=== PATIENT | female | born 1935 | race Caucasian/White ===

== ENCOUNTER 2018-12-24 15:58 | Inpatient (IN) | payer MEDICARE, OTHER ==
[~2018-12-24] VITALS: Ht 170.2 cm; Wt 81.5 kg
[~2018-12-24 15:58] MED LIST: ASPIR 8181 MG PO; ASPIRIN325 PO; BRILINTA90 MG PO; COLACE100 MG PO; LISINOPRIL20 MG PO; LOVASTAT40 PO
[2018-12-24 17:00] VITALS: BP 107/61
[2018-12-24] MEDS ORDERED: ASPIRIN325 PO (18:49)
[2018-12-24] MEDS ORDERED: VITAMINC500 PO (18:50)
[2018-12-24] MEDS ORDERED: VITAMIN D1000 UNI1 PO (18:50)
[2018-12-24] MEDS ORDERED: FISH OIL 1,001000 M2 PO (18:51)
[2018-12-24] MEDS ORDERED: UNICOMPLEX M TA1 TA1 PO (18:51)
[2018-12-24] MEDS ORDERED: BIOTIN1000 MCG PO (18:52)
[2018-12-24 20:00] VITALS: BP 129/74
[2018-12-24 21:35] LABS: HEMATOCRIT 35.5 % (37.0-47.0); HEMOGLOBIN 12.2 gm/dL (12.0-15.0); MCH 32.1 pg (26.0-34.0); MCHC 34.3 g/dL (28.0-37.0); MCV 93.5 fL (80.0-100.0); MPV 8.2 fl. (7.2-11.1); RBC 3.8 mil/uL (4.20-5.00); WBC 4.6 thou/uL (4.0-11.0)
[2018-12-24 21:48] LABS: ALBUMIN 3.1 g/dL (3.4-5.0); CALCIUM 8.5 mg/dL (8.5-10.1); CREATININE 1.2 mg/dL (0.6-1.3); POTASSIUM 3.7 mmol/L (3.5-5.1); TOTAL BILIRUBIN 0.2 mg/dL (<0.1-1.0); TOTAL PROTEIN 6.2 g/dL (6.4-8.2)
[2018-12-25] VITALS: BP 100/57
[2018-12-25 04:33] VITALS: BP 101/57
[2018-12-25 07:37] VITALS: BP 116/66
[2018-12-25 09:54] LABS: CHOLESTEROL 138 mg/dL (<200); HDL CHOLESTEROL 59 mg/dL (>40); LDL CHOLESTEROL 62 mg/dL (<100); SERUM ASSESSMENT Clear; TC:HDL 2.3 Ratio (Not establshd); TRIGLYCERIDE 86 mg/dL (<150); VLDL 17 mg/dL (<40)
[2018-12-25 12:00] VITALS: BP 135/68
--- NOTE | 2018-12-25 14:05 | 2DMMODE ---
[place] [address] 2 D/M-MODE ECHOCARDIOGRAM Name: FAY NUNEZ Room: [address] IN .R.#: [id number] Admission: 12/24/18 Attend Phys: Venkata Reid Discharge: Date of : 35 Date of Service: 12/25/18 1405 Report #: [id number] THIS REPORT FOR: //name// APPROVED REPORT Study performed: 12/25/2018 10:20:31 EXAM: Comprehensive 2D, Doppler, and color-flow Echocardiogram Patient Location: In-Patient Room #: 201 Status: routine BSA: 1.92 HR: 64 bpm BP: 116/66 mmHg Rhythm: NSR Other Information Study Quality: Good Indications Atrial Fibrillation 2D Dimensions IVSd: 10.25 (7-11mm) LVOT Diam: 19.48 (18-24mm) LVDd: 45.24 mm PWd: 9.12 (7-11mm) Ascending Ao: 30.71 (22-36mm) LVDs: 30.62 (25-40mm) Aortic Root: 31.63 mm Volumes Left Atrial Volume (Systole) LA ESV Index: 39.10 mL/m2 Aortic Valve AoV Peak Jef.: 1.56 m/s AO Peak Gr.: 9.69 mmHg LVOT Max P.31 mmHg AO Mean Gr.: 5.50 mmHg LVOT Mean P.91 mmHg LVOT Max V: 1.26 m/s AO V2 VTI: 33.93 cm LVOT Mean V: 0.77 m/s KERVIN (VTI): 2.61 cm2 LVOT V1 VTI: 29.70 cm Mitral Valve E/A Ratio: 1.76 MV Decel. Time: 234.13 ms MV E Max Jef.: 1.23 m/[place] [address] 2 D/M-MODE ECHOCARDIOGRAM Name: FAY NUNEZ Room: [address] IN .R.#: [id number] Admission: 12/24/18 Attend Phys: Venkata Reid Discharge: Date of : 35 Date of Service: 12/25/18 1405 Report #: [id number] MV PHT: 67.90 ms MVA (PHT): 3.24 cm2 TDI E/Lateral E': 12.30 E/Medial E': 15.38 Medial E' Jef.: 0.08 m/s Lateral E' Jef.: 0.10 m/s Pulmonary Valve PV Peak Jef.: 0.80 m/s PV Peak Gr.: 2.56 mmHg Tricuspid Valve RAP Estimate: 5.00 mmHg TR Peak Gr.: 27.76 mmHg RVSP: 32.00 mmHg PA Pressure: 32.00 mmHg Left Ventricle The left ventricle is normal size. There is normal LV segmental wall motion. There is normal left ventricular wall thickness. Left ventricular systolic function is normal. LVEF is 60-65%. Grade III - reversible restrictive diastolic dysfunction. Right Ventricle The right ventricle is normal size. The right ventricular systolic function is normal. Atria Left atrium is mildly dilated. Right atrium is mildly dilated. There is an echogenic structure in the right atrium consistent with calcified eustachian valve. Aortic Valve Mild aortic valve sclerosis. No aortic regurgitation is present. There is no aortic valvular stenosis. Mitral Valve There is mitral annular calcification. Mild mitral regurgitation. No evidence of mitral valve stenosis. Tricuspid Valve The tricuspid valve is normal in structure. Trace tricuspid regurgitation. Mild pulmonary hypertension. Pulmonic Valve The pulmonary valve is normal in structure. [place] [address] 2 D/M-MODE ECHOCARDIOGRAM Name: FAY NUNEZ Room: [address]#: [id number] Admission: 12/24/18 Attend Phys: Venkata Reid Discharge: Date of : 35 Date of Service: 12/25/18 1405 Report #: [id number] Great Vessels The aortic root is normal in size. IVC is normal in size and collapses >50% with inspiration. Pericardium There is no pericardial effusion. <Conclusion> The left ventricle is normal size. There is normal left ventricular wall thickness. Left ventricular systolic function is normal. LVEF is 60-65%. Grade III - reversible restrictive diastolic dysfunction. Grade III - reversible restrictive diastolic dysfunction. Left atrium is mildly dilated. Right atrium is mildly dilated. There is an echogenic structure in the right atrium consistent with calcified eustachian valve. Mild aortic valve sclerosis. There is no aortic valvular stenosis. There is mitral annular calcification. Mild mitral regurgitation. Trace tricuspid regurgitation. Mild pulmonary hypertension. IVC is normal in size and collapses >50% with inspiration. <ELECTRONICALLY SIGNED> By: Rafael Monroy MD, FACC 12/25/18 1405 1405 1405 Rafael Monroy MD, FACC /INF
[2018-12-25 14:20] VITALS: BP 135/68
[2018-12-25] MEDS ORDERED: PROPAFENONE 15150 MG PO (14:25)
[2018-12-25] MEDS ORDERED: ELIQUIS5 MG PO (14:25)
--- NOTE | 2018-12-26 08:57 | EKG ---
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 : 1935 Requested By: Sandy Miller Order Number: [id number] Candy MD: Julien Acevedo Measurements Intervals [place] Rate: 60 P: 4 NM: 266 QRS: 46 QRSD: 93 T: 43 QT: 450 QTc: 450 Interpretive Statements Sinus rhythm Prolonged NM interval Borderline T abnormalities, anterior leads Compared to ECG 04/29/2017 07:37:21 no change Electronically Signed On 12-26-2018 8:57:03 CDT by Julien Acevedo [email or web address] <ELECTRONICALLY SIGNED> By: Julien Acevedo MD, [facility] 12/26/18 0857 1522 1522 Julien Acevedo MD, [facility] /EPI
== END 2018-12-25 15:30 | disposition home or self-care (01) | DRG 309 ==
LOC: M.2W 15:58
PROVIDERS: Registered Nurse; ADMIT Internal Medicine
DX: I48.0 Paroxysmal atrial fibrillation (principal); D68.69 Other thrombophilia; I25.10 Atherosclerotic heart disease of native coronary artery without angina pectoris; I10 Essential (primary) hypertension; E78.5 Hyperlipidemia, unspecified; Z95.5 Presence of coronary angioplasty implant and graft; Z86.73 Personal history of transient ischemic attack (TIA), and cerebral infarction without residual deficits; Z79.899 Other long term (current) drug therapy

== ENCOUNTER 2019-02-08 21:59 | Observation (INO) | payer MEDICARE, OTHER ==
[~2019-02-08] VITALS: Ht 170.2 cm; Wt 81.6 kg
--- NOTE | ~2019-02-08 | CON ---
[address] [address] CONSULTATION Name: FAY NUNEZ Room: [address] Aneudy Cueva#: [id number] Admission: 02/08/19 Attend Phys: Esme Alvarado MD Discharge: 02/09/19 Date of : 35 Report #: [id number] THIS REPORT FOR: //name// CC: Lucas Alvarado DATE OF SERVICE: 02/09/2019 INPATIENT CONSULTATION: PRIMARY COW TESTER: Dr. Devaughn Bills. CHIEF COMPLAINT: Palpitations, dizziness. HISTORY OF PRESENT ILLNESS: The patient is an 83-year-old woman with PAF who was in the office with palpitation symptoms and we elected to start her on Cardizem and after she started taking Cardizem, she felt dizzy, weak, and lightheaded. She went to the Emergency Room, was found to be in a sinus rhythm. She did have a first degree AV block, which is known along with PACs, but no AFib. Her blood pressure was low normal. Overnight, she has been monitored on the telemetry and this has been stable without evidence of atrial fibrillation or cardiac pauses or bradycardia. She has a history of known coronary artery disease and has been having some diaphoresis which was similar to her pre-PCI pain. However, her troponins and EKGs were negative and she is asymptomatic this morning. She denies orthopnea or PND. She has a history of normal LV systolic function. In the past, she has worn a 30-day monitor, which did not show evidence of sick sinus syndrome. PAST MEDICAL HISTORY: She has a history of PAF, hypertension, coronary artery disease, status post PCI with drug-eluting stent placed in the mid RCA in 2017. She is actually scheduled for an outpatient nuclear stress test because of her diaphoresis symptoms for next week. HOME MEDICATIONS: Include Eliquis 5 mg p.o. b.i.d., flecainide 50 mg 1 p.o. b.i.d., Mevacor 40 mg daily and Cardizem 120 mg has been discontinued. She has previously failed Rythmol because of side effects. She had previously been on lisinopril for high blood pressure, but this has been held. SOCIAL HISTORY: She is a nonsmoker [place] [address] CONSULTATION Name: FAY NUNEZ Room: [address] Aneudy Cueva#: [id number] Admission: 02/08/19 Attend Phys: Esme Alvarado MD Discharge: 02/09/19 Date of : 35 Report #: [id number] FAMILY HISTORY: Positive for mild hypertension. No history of sudden . REVIEW OF SYSTEMS: GENERAL: No fevers or chills. CARDIOVASCULAR: Positive palpitations, positive diaphoresis, positive near syncope. No syncope, no chest pain and orthopnea. PULMONARY: No wheezing or cough. ALLERGIES: No seasonal, medical, aspirin or contrast dye. PSYCHIATRIC: No depression or anxiety. MUSCULOSKELETAL: No arthritis or connective tissue disease. SKIN: No rashes. EYES: She does use glasses. EARS, NOSE, THROAT AND MOUTH: No decreased hearing. No bleeding from nose. GASTROINTESTINAL: No nausea or vomiting. PHYSICAL EXAMINATION: VITAL SIGNS: Blood pressure was 131/62, pulse is 60, respiratory rate 17. GENERAL: This is a pleasant elderly female. She is alert, oriented, no apparent distress. NECK: Supple, no jugular venous distention. CARDIOVASCULAR: Regular. I cannot hear a murmur. There is no rub or gallop. LUNGS: Clear to auscultation. ABDOMEN: Soft, nontender, nondistended. EXTREMITIES: No peripheral edema noted. No focal deficits. LABORATORY DATA: Electrocardiogram shows sinus rhythm, first degree AV block with PACs, mild sinus arrhythmia and no cardiac pauses. No AFib. Normal ST segments. CBC and BMP are unremarkable. Chest x-ray showed no acute cardiopulmonary process. IMPRESSION: 1. Weakness, near syncope. I suspect this was secondary to hypotension and this has resolved after discontinuing her drug. 2. Paroxysmal atrial fibrillation. She still has episodes of palpitation symptoms, which are likely her atrial fibrillation, which can last up to 45 minutes. She has been intolerant of other medications including Rythmol. She is maintaining sinus rhythm with flecainide, so I would like to continue with this drug, but I added p.r.n. Lopressor 12.5 mg for palpitation symptoms lasting more than 20-30 minutes long. She will continue with oral anticoagulation. 3. Diaphoresis, atypical chest pain. These are [place] [address] CONSULTATION Name: FAY NUNEZ Room: [address] JOSE Cueva#: [id number] Admission: 02/08/19 Attend Phys: Esme Alvarado MD Discharge: 02/09/19 Date of : 35 Report #: [id number] apparently she had prior to her PCI, so she is scheduled for an outpatient stress test. By: [id number] Alvarez MD, FACC /nt
[~2019-02-08 21:59] MED LIST changes: +BIOTIN1000 MCG PO; +ELIQUIS5 MG PO; +FISH OIL 1,001000 M2 PO; +PROPAFENONE 15150 MG PO; +UNICOMPLEX M TA1 TA1 PO; +VITAMIN D1000 UNI1 PO; +VITAMINC500 PO
[2019-02-08 22:03] VITALS: BP 162/89
[2019-02-08 22:23] LABS: ABSOLUTE EOSINOPHILS 0.3 thou/uL (0.0-0.7); ABSOLUTE LYMPHOCYTES 2.7 thou/uL (0.8-5.3); ABSOLUTE MONOCYTES 0.6 thou/uL (0.0-1.2); ABSOLUTE NEUTROPHILS 3.1 thou/uL (1.6-8.1); BASOPHILS 0.7 %; EOSINOPHILS 4.4 %; HEMATOCRIT 40.8 % (37.0-47.0); HEMOGLOBIN 13.9 gm/dL (12.0-15.0); MCH 32.1 pg (26.0-34.0); MCHC 34.1 g/dL (28.0-37.0); MCV 94.1 fL (80.0-100.0); MONOCYTES 8.7 %; NUCLEATED RBCS 0 /100WBC; PLATELET COUNT* 178 thou/uL (150-400); POLYS 46.2 %; RBC 4.33 mil/uL (4.20-5.00); RDW-CV 13.4 % (10.5-14.5); WBC 6.7 thou/uL (4.0-11.0)
[2019-02-08 22:33] LABS: ANION GAP 12 mmol/L (7-16); BUN 31 mg/dL (7-18); CHLORIDE 106 mmol/L (98-107); CO2 24 mmol/L (21-32); CREATININE 1.1 mg/dL (0.6-1.3); GLUCOSE 111 mg/dL (70-99); POTASSIUM 3.9 mmol/L (3.5-5.1); SODIUM 142 mmol/L (136-145)
[2019-02-08 22:36] LABS: APTT 27.2 Seconds (25.0-31.3); PROTIME 10.6 Seconds (9.20-11.50)
[2019-02-08 22:45] LABS: ALBUMIN 3.7 g/dL (3.4-5.0); ALKALINE PHOSPHATASE 59 U/L (46-116); CK-MB MASS 2.5 ng/mL (<0.5-3.6); LIPASE 195 U/L (73-393); MAGNESIUM 1.7 mg/dL (1.8-2.4); NT-PRO BRAIN NAT PEPTIDE 144 pg/mL (<300); SGOT 16 U/L (15-37); SGPT 18 U/L (30-65); TOTAL BILIRUBIN 0.2 mg/dL (<0.1-1.0); TOTAL PROTEIN 7.3 g/dL (6.4-8.2); TROPONIN-I LEVEL <0.06 ng/mL (<0.06)
[2019-02-08 23:45] VITALS: BP 138/80
[2019-02-09] MEDS ORDERED: CRESTOR40 MG PO (00:20)
[2019-02-09] MEDS ORDERED: FLECAINIDE ACET50 M1 PO ×2 (00:22→11:38)
[2019-02-09] MEDS ORDERED: CARDIZEM CD120 MG PO (00:23)
[2019-02-09 00:30] VITALS: BP 145/80
[2019-02-09 04:00] VITALS: BP 131/62
--- NOTE | 2019-02-09 05:31 | NUR ---
RECEIVED REPORT FROM ED RN. PT TRANSFERRED TO 204. PT A&OX4. VSS. PERSONNEL COUNSELOR IN PLACE. ADMISSION HISTORY & PHYSICAL ASSESSMENT COMPLETED AND CHARTED. ORIENTED TO ROOM AND CALL LIGHT. PT ON RA. PT TRACING SR ON TELE. PT BRIANNADLIB. MAGNESIUM 1.7. ELECTROLYTE PROTOCOL IN PLACE. DENIES ANY PAIN OR SOA. CALL LIGHT WITHIN REACH.
[2019-02-09] MEDS ORDERED: LOPRESSOR25 PO (11:48)
[2019-02-09 12:42] VITALS: BP 116/60
[2019-02-09 12:47] VITALS: BP 116/60
--- NOTE | 2019-02-09 13:45 | NUR ---
A&O X4, UP AD ROSS, VSS, CONTRACTING MANAGER TRACING SINUS RHYTHM WITH 1ST DEGREE BLOCK, RA, DENIES ANY CHEST PAIN/PALPITATIONS OR SOA. HOURLY ROUNDING COMPLETED. PT DISCHARGED HOME FROM UNIT AT APPROX 1340 VIA WHEELCHAIR WITH NURSING STAFF, , AND DAUGHTER AT SIDE. EDUCATED ON ALL DISCHARGE INSTRUCTIONS INCLUDING MEDICATIONS AND FOLLOW UP APPTS. PT TO HAVE OUT PATIENT STRESS TEST MONDAY. IV AND CONTRACTING MANAGER REMOVED.
--- NOTE | 2019-02-10 11:38 | EKG ---
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1935 Requested By: Milton Alvarado Order Number: [id number] MD: Enmanuel Alvarez Measurements Intervals [place] Rate: 79 P: 20 OK: 303 QRS: 11 QRSD: 106 T: 31 QT: 402 QTc: 461 Interpretive Statements Sinus rhythm Prolonged OK interval Minimal ST elevation, inferior leads Compared to ECG 12/25/2018 15:22:44 ST (T wave) deviation now present T-wave abnormality no longer present Electronically Signed On 02-10-2019 11:37:53 CDT by Enmanuel Alvarez [email or web address] <ELECTRONICALLY SIGNED> By: Enmanuel Alvarez MD, [facility] 02/10/19 1137 03 03 Enmanuel Alvarez MD, [facility] /EPI
== END 2019-02-09 13:40 | disposition home or self-care (01) ==
LOC: M.ERS 21:59 → M.TBA-ER 22:55 → M.2W 22:55
PROVIDERS: Family Medicine; ADMIT Internal Medicine
DX: R55 Syncope and collapse (principal); R53.1 Weakness; I25.10 Atherosclerotic heart disease of native coronary artery without angina pectoris; I48.0 Paroxysmal atrial fibrillation; I44.0 Atrioventricular block, first degree; T46.1X5A Adverse effect of calcium-channel blockers, initial encounter; E78.5 Hyperlipidemia, unspecified; E83.42 Hypomagnesemia; E78.00 Pure hypercholesterolemia, unspecified; R61 Generalized hyperhidrosis; Z86.73 Personal history of transient ischemic attack (TIA), and cerebral infarction without residual deficits; Z79.899 Other long term (current) drug therapy; Z95.5 Presence of coronary angioplasty implant and graft

== ENCOUNTER → 2019-02-11 | Outpatient (CLI) | payer MEDICARE, OTHER ==
[~2019-02-11] MED LIST changes: +CARDIZEM CD120 MG PO; +CRESTOR40 MG PO; +FLECAINIDE ACET50 M1 PO; +LOPRESSOR25 PO
--- NOTE | 2019-02-11 16:38 | CARDNUC ---
[place] [address] CARDIAC NUCLEAR IMAGING REPORT Name: FAY NUNEZ Room: [facility]#: [id number] Admission: 02/11/19 Attend Phys: Erin Blair, Discharge: Date of : 35 Date of Service: 02/11/19 1638 Report #: [id number] THIS REPORT FOR: //name// APPROVED REPORT Imaging Protocol: Rest Tc-99m/Stress Tc-99m 1 day Study performed: 02/11/2019 11:44:49 Indication: Chest pain, Diaphoretic, Racing heart. Patient Location: Out-Patient Stress Tech: Charla Harvey Stress Nurse: Alesha Olson RN NM Tech:ANNETTE Chi Ht: 5 ft 7 in Wt: 177 lbs BSA: 1.92 m2 BMI: 27.71 Medical History Medical History: Angina, Arrhythmia, Atrial Fibrillation, CAD s/p stent, CVD, HTN, Hyperlipidemia, Stroke/TIA. Medications: Rosuvastatin, Flecainide Acetate, Eliquis, Metoprolol PRN. Allergies: No known drug allergies Cardiac Risk Factors: Age, FHX of CAD, HTN, Hyperlipidemia, AFib. Previous Cardiac Procedures: PCI Pretest Chest Pain Characteristics: No chest pain Exercise History: Indeterminate Physical Disabilities: Legs, Back Meds Held (24 hrs): None Resting Data Rest SPECT myocardial perfusion imaging was performed in supine position 30 minutes following the intravenous injection of 11.2 mCi of Tc-99m Sestamibi. Time of rest injection: 1005 Date: 02/11/2019 The images were gated to evaluate regional wall motion and calculate left ventricular ejection fraction. Administration Route: IV Administration Site: Right Hand Pharmacologic Stress Pharmacologic stress test was performed by injecting Regadenoson 0.4 mg IV push over 10-15 seconds immediately followed by the intravenous injection of 31.9 mCi of Tc-99[place] [address] CARDIAC NUCLEAR IMAGING REPORT Name: FAY NUNEZ Room: [facility]#: [id number] Admission: 02/11/19 Attend Phys: Erin Blair, Discharge: Date of : 35 Date of Service: 02/11/19 1638 Report #: [id number] Time of stress injection: 1155 Date: 02/11/2019 Administration Route: IV Administration Site: Right Hand Gated Stress SPECT was performed 40 minutes after stress injection. The images were gated to evaluate regional wall motion and calculate left ventricular ejection fraction. Prone imaging was performed. Stress Test Details Stress Test: Pharmacologic stress testing performed using 0.4 mg of regadenoson per 5 mL given IV over 10 seconds. Reason for pharmacologic stress test: physical limitation, painful back and knees.. HR Max Heart Rate (APMHR): 137 bpm Resting HR: 67 bpm Target HR (85% APMHR): 116 bpm Max HR Achieved: 92 bpm % of APMHR: 67 Recovery HR: 83 bpm BP Resting BP: 144/91 mmHg Max BP: 127/77 mmHg Recovery BP: 178/87 mmHg ECG Resting ECG: Sinus Rhythm Stress ECG: Sinus Rhythm ST Change: None Arrhythmia: None Recovery ECG: Sinus Rhythm Recovery ST Change: None Recovery Arrhythmia: None Clinical Reason for Termination: Completed protocol Stress Symptoms: Headache, Lightheaded, Leg Ache/pain. Exercise duration: 0 min 0 sec Exercise capacity: 1.00 METs The patient tolerated Lexiscan infusion without significant cardiac symptoms. Nurse Comments 83 year old female presented with recent HX of CP and Diaphoresis. Patient tolerated sitting Lexiscan well. Recovery unremarkable with PO caffeine. Patient escorted by staff [place] [address] CARDIAC NUCLEAR IMAGING REPORT Name: FAY NUNEZ Room: [facility]#: [id number] Admission: 02/11/19 Attend Phys: Erin Blair, Discharge: Date of : 35 Date of Service: 02/11/19 1638 Report #: [id number] images. Patient stable with no complaints at this time. Stress ECG Conclusion The baseline 12-lead EKG show sinus rhythm without significant ST or T wave abnormality. EKGs obtained during and post Lexiscan infusion show sinus rhythm with no significant ST or T wave changes when compared baseline. There were no stress-induced arrhythmias. Study Quality Study: Good Artifact: No artifact Study Data At rest, the left ventricular ejection fraction was 80%.. Post stress, the left ventricular ejection was 75%.. TID = 0.99. Perfusion Normal left ventricular perfusion. Wall Motion Normal left ventricular wall motion. Nuclear Conclusion ECG Findings: negative for ischemia Clinical Findings: negative for ischemia Nuclear Findings: negative for ischemia Exercise Capacity: not assessed Left Ventricular Function: normal Risk Study: low Myocardial perfusion images show no defect to suggest infarct or ischemia. Left ventricular systolic function appears normal on gated studies. This is a low risk study. <Conclusion> The baseline 12-lead EKG show sinus rhythm without significant ST or T wave abnormality. EKGs obtained during and post Lexiscan infusion show sinus rhythm with no significant ST or T wave changes when compared baseline. There were no stress-induced arrhythmias. <ELECTRONICALLY SIGNED> By: Rafael Monroy MD, FACC 02/11/19 1638 1638 1638 Rafael Monroy MD, FACC /INF
== END ==
LOC: M.NUC 01-31 14:53 → M.CRD 02-04 15:00 → M.NUC 02-04 16:00
DX: I25.119 Atherosclerotic heart disease of native coronary artery with unspecified angina pectoris (principal); I48.91 Unspecified atrial fibrillation; E78.5 Hyperlipidemia, unspecified; I10 Essential (primary) hypertension

== ENCOUNTER 2020-04-29 14:55 | Observation (INO) | payer MEDICARE, OTHER ==
[~2020-04-29] VITALS: Ht 167.6 cm; Wt 74.8 kg
[2020-04-29] VITALS (10 sets, daily range): BP systolic 135–202; BP diastolic 76–91
--- NOTE | ~2020-04-29 | H ---
[place] [address] HISTORY AND PHYSICAL Name: FAY NUNEZ Room: [facility] Negrita.#: [id number] Admission: 04/29/20 Attend Phys: Devaughn Bills MD, Discharge: Date of : 35 Report #: [id number] THIS REPORT FOR: //name// cc: Lucas Echols MD, James A. MD ~ THIS REPORT FOR: //name// CC: Lucas Bills DATE OF SERVICE: 04/29/2020 HISTORY OF PRESENT ILLNESS: The patient is a very pleasant 84-year-old female with a history of coronary artery disease, 3 years status post stenting of the mid right coronary artery. She also has a history of hypertension, hypercholesterolemia, and paroxysmal atrial fibrillation. For the preceding 2 months, she has noted episodes of unexplained sweatiness with left arm aching pain, similar to her prior ischemic syndrome 3 years ago that triggered PCI to the right coronary artery. She has a history of paroxysmal atrial fibrillation, she denies recent symptoms suggesting recurrent dysrhythmia. The patient is compliant with anticoagulant therapy with Eliquis and also takes ascorbic acid, biotin, cholecalciferol, fish oil, flecainide 50 mg b.i.d., Lopressor 25 mg daily, Crestor 20 mg daily, vitamin B12, and Thera-M tablets. PAST MEDICAL HISTORY: Remarkable for hypertension, paroxysmal atrial fibrillation, hypercholesterolemia and mild weight excess. SOCIAL HISTORY: She is . She is a nonsmoker. FAMILY HISTORY: Negative for premature coronary disease. REVIEW OF SYSTEMS: Remarkable for the following positives. GENERAL: She notes mild weight excess. ENDOCRINE: There is a history of treated hyperlipidemia. MUSCULOSKELETAL: She notes mild chronic arthritic complaints. CARDIAC: There is a history of coronary artery disease, status post PCI in 2017 with a history of paroxysmal atrial fibrillation, treated with flecainide and Eliquis. Remainder is unremarkable. PHYSICAL EXAMINATION: GENERAL: Demonstrates a mildly overweight elderly female. VITAL SIGNS: Blood pressure is 140/70, pulse rate is 70, [place] [address] HISTORY AND PHYSICAL Name: FAY NUNEZ Room: [facility]#: [id number] Admission: 04/29/20 Attend Phys: Devaughn Bills MD, Discharge: Date of : 35 Report #: [id number] 18 per minute. NECK: Jugular venous pressure is normal. Carotids are 1-2+. CHEST: Clear. CARDIAC: Reveals normal first and second heart sounds with soft early systolic murmur without rubs or gallops. ABDOMEN: Modestly obese and nontender, without masses or organomegaly. EXTREMITIES: Without edema, clubbing or cyanosis with intact femoral, pedal and radial pulses. There are no deforming arthritic changes. No petechiae or ecchymosis are noted. LABORATORY DATA: Pending. IMPRESSION: 1. Coronary artery disease. 2. Recent pattern of diaphoresis and left arm aching pain compatible with angina following an unstable course. 3. Status post PCI of the right coronary artery 3 years ago. 4. Hypercholesterolemia. 5. Hypertension. 6. Paroxysmal atrial fibrillation. 7. Mild weight excess. RECOMMENDATIONS: Given the recent clinical scenario and known coronary artery disease with risk factor profile as outlined above, I would recommend proceeding with cardiac catheterization to define current coronary anatomy and prospects for subsequent therapeutic modification. This has been discussed with the patient, we will plan to proceed with cardiac catheterization today on 04/29/2020. Critical care time is 35 minutes from 1450 to 1525 on 04/29/2020. By: 1518 1553Devaughn Bills MD, FACC /nt
--- NOTE | ~2020-04-29 | D ---
[address] [address] DISCHARGE SUMMARY Name: FAY NUNEZ Room: [address] Aneudy M.R.#: [id number] Admission: 04/29/20 Attend Phys: Devaughn Bills MD, Discharge: Date of : 35 Report #: [id number] THIS REPORT FOR: //name// cc: Lucas Echols MD, James A. MD ~ THIS REPORT FOR: //name// CC: Lucas Bills DATE OF SERVICE: 04/30/2020 The patient discharged from room #226 on 04/30/2020. FINAL DISCHARGE DIAGNOSES: 1. Angina pectoris. 2. Coronary artery disease. 3. Status post prior percutaneous coronary intervention. 4. Hyperlipidemia. 5. Hypertension. 6. Paroxysmal atrial fibrillation. PROCEDURES: On 04/29/2020 -- left heart catheterization, selective coronary arteriography. HISTORY AND HOSPITAL COURSE: The patient is a very pleasant and active 84-year-old female who is now 3 years status post PCI to the mid right coronary artery. She describes symptoms which were similar to her prior angina with unexplained diaphoresis and mild left arm pain occurring periodically. In the context of the known coronary artery disease as well as hypertension and hyperlipidemia, I elected to proceed with cardiac catheterization on 04/29/2020. That revealed a widely patent mid right coronary stent with 40% proximal, 50% distal right coronary narrowing. There was 30% proximal, mid and distal LAD narrowings with 30% first diagonal narrowing. The left main and circumflex were without significant stenosis. Systemic pressure was modestly elevated during the case. She has a history of atrial fibrillation, but did not demonstrate that during the hospitalization. There was good hemostasis at the right femoral site of catheterization, and she was discharged to home in stable condition on 04/30/2020 on the following medications: Eliquis 5 mg b.i.d. to be resumed on 05/01/2020, ascorbic acid or vitamin C 1000 mg daily, biotin 1000 mcg daily, vitamin D or cholecalciferol 1000 units daily, fish oil 1000 mg daily, flecainide 50 mg b.i.d., [place] [address] DISCHARGE SUMMARY Name: FAY NUNEZ Room: [address] M.R.#: [id number] Admission: 04/29/20 Attend Phys: Devaughn Bills MD, Discharge: Date of : 35 Report #: [id number] 1 tablet daily, rosuvastatin 40 mg at bedtime and metoprolol tartrate 25 mg b.i.d. as well as p.r.n. sublingual nitroglycerin. The patient is scheduled to return to see me in the office on 05/27/2020 at our [facility] Office at 1100 hours. Therefore, the patient is discharged to home in stable condition on the aforementioned medications with followup as described above. By: [id number] Bills MD, [facility] /nt
[~2020-04-29 14:55] MED LIST changes: -VITAMIN D1000 UNI1 PO; +Vitamin D 1000 UNIT PO
[2020-04-29 15:25] LABS: HEMATOCRIT 42.6 % (37.0-47.0); HEMOGLOBIN 14.6 gm/dL (12.0-15.0); MCH 32.4 pg (26.0-34.0); MCHC 34.4 g/dL (28.0-37.0); MCV 94.4 fL (80.0-100.0); MPV 8.2 fl. (7.2-11.1); RBC 4.51 mil/uL (4.20-5.00); RDW-CV 12.8 % (10.5-14.5); WBC 6.5 thou/uL (4.0-11.0)
[2020-04-29 15:35] LABS: ANION GAP 9 mmol/L (7-16); BUN 17 mg/dL (7-18); CALCIUM 9.4 mg/dL (8.5-10.1); CHLORIDE 104 mmol/L (98-107); CO2 26 mmol/L (21-32); CREATININE 0.9 mg/dL (0.6-1.3); GLUCOSE 93 mg/dL (70-99); POTASSIUM 4.1 mmol/L (3.5-5.1); SODIUM 139 mmol/L (136-145)
[2020-04-29 15:36] LABS: APTT 26.6 Seconds (25.0-31.3); INR 1.1; PROTIME 11.2 Seconds (9.20-11.50)
[2020-04-29 15:39] LABS: ALBUMIN 4.1 g/dL (3.4-5.0); ALKALINE PHOSPHATASE 57 U/L (46-116); CHOLESTEROL 137 mg/dL (<200); HDL CHOLESTEROL 82 mg/dL (>40); LDL CHOLESTEROL 46 mg/dL (<100); SERUM ASSESSMENT Clear; SGOT 14 U/L (15-37); SGPT 17 U/L (30-65); TC:HDL 1.7 Ratio (Not establshd); TOTAL BILIRUBIN 0.5 mg/dL (<0.1-1.0); TOTAL PROTEIN 7.5 g/dL (6.4-8.2); TRIGLYCERIDE 47 mg/dL (<150); VLDL 9 mg/dL (<40)
--- NOTE | 2020-04-29 19:05 | EKG ---
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
[2020-04-30] VITALS: BP 169/84
[2020-04-30 04:00] VITALS: BP 168/88
[2020-04-30 05:44] LABS: CALCIUM 8.6 mg/dL (8.5-10.1)
[2020-04-30 08:00] VITALS: BP 172/82
--- NOTE | 2020-04-30 08:50 | EKG ---
[place] [address] ELECTROCARDIOGRAM REPORT Name: FAY NUNEZ Room: [address] M.R.#: [id number] Admission: 04/29/20 Attend Phys: Venkata Reid Discharge: Date of : 35 Date of Service: 04/30/20 0515 Report #: [id number] THIS REPORT FOR: //name// [facility] Test Date: 2020-04-30 Test Time: 05:15:51 Pat Name: FAY NUNEZ Department: Room: [address] Gender: F Clinical Pharmacy Manager: TRAY : 1935 Requested By: Devaughn Bills Order Number: [id number] Candy MD: Julien Acevedo Measurements Intervals [place] Rate: 60 P: 0 UT: 285 QRS: 18 QRSD: 106 T: 59 QT: 436 QTc: 436 Interpretive Statements Sinus rhythm Prolonged UT interval Compared to ECG 04/29/2020 15:19:58 No significant changes Electronically Signed On 04-30-2020 8:50:09 CDT by Julien Acevedo [email or web address] <ELECTRONICALLY SIGNED> By: Julien Acevedo MD, [facility] 04/30/20 0850 0515 0515 Julien Acevedo MD, [facility] /EPI
--- NOTE | 2020-04-30 09:58 | CARD ---
[address] [address] CARDIAC CATH REPORT Name: FAY NUNEZ Room: [address] Aneudy M.Zayra#: [id number] Admission: 04/29/20 Attend Phys: Devaughn Bills MD, Discharge: Date of : 35 Report #: [id number] THIS REPORT FOR: //name// cc: Lucas Echols MD, James A. MD ~ APPROVED REPORT Study performed: 04/29/2020 14:58:49 Patient Details Patient Status: Out-Patient Room #: The patient is a 84 year-old female Event Personnel Devaughn Bills Pan Devulcanizer Helper, Eric Melgar Kramer, Jessie RTR Monitor, Jimi Nelson RN assurance associate Performed Art Access - R femoral artery Left Heart Cath w/or w/o Coronaries Hemostasis w/ Mynx Indication Chest pain Risk Factors Hypercholesterolemia, Hypertension Previous Procedures/Diagnoses Previous PCI Admission/Lab Medications/Medications given during procedure Oxygen Nasal cannula 2 l per min, 0.9% Sodium Chloride IV 100 ml per hr, Fentanyl IV 75 mcg, Midazolam (Versed) IV 2.5 mg, Lidocaine Subcut 14 ml, Nitroglycerin IC 200 mcg Procedure Narrative The patient was brought electively to the Cardiac Catheterization Laboratory and was prepped and draped in a sterile manner. The right femoral was infiltrated with 2% Lidocaine subcutaneous anesthesia. A [place] 6 FR sheath was inserted into the right femoral artery. Coronary angiography was performed using coronary diagnostic catheters. The right coronary system was accessed and visualized with a Diagnostic 6 Fr 3 DRC catheter. The left coronary system was accessed and visualized with a Diagnostic 6 Fr JL 4 catheter. The left ventricle was accessed and visualized with a Diagnostic 6 Fr 3 [place] [address] CARDIAC CATH REPORT Name: FAY NUNEZ Room: [address] MNiaR.#: [id number] Admission: 04/29/20 Attend Phys: Devaughn Bills MD, Discharge: Date of : 35 Report #: [id number] DRC catheter. Left ventricular/Aortic Valve gradient assessed via catheter pullback. Pre-demployment femoral angiogram was performed . Closure device was deployed with a Fr MynxGrip 6/7F. The patient tolerated the procedure well and there were no complications associated with the procedure. There was no hematoma. Intraoperative Conscious Sedation Sedation start time: 15:45 Case end Time: 16:17 Fentanyl 75 mcg Versed 2.5 mg Fluoro Time: 6.6 minutes Dose: DAP 10163 cGycm2 660 mGy Contrast Type and Amount: Visipaque 100 ml Coronary Angiography The patient's coronary anatomy is right dominant. Diagnostic Cath Left Main 0% narrowing LAD 30% proximal mid and distal narrowings Diagonal 1 50% mid vessel narrowing Circumflex 0% narrowing Right Coronary 40% proximal narrowing with a widely patent mid right coronary stent and 50% distal right coronary narrowing Left Ventriculography Left Ventriculography was not performed. Hemodynamics The aortic pressure is 154/73 mmHg with a mean of 102 mmHg. The left ventricular pressure is 163/-2 mmHg with a mean of mmHg. The left ventricular end diastolic pressure is 10 mmHg. There was no gradient across the aortic valve upon pullback. Conclusion 1. Modest coronary artery disease characterized by the following: A 40% proximal right coronary narrowing with a widely patent mid right coronary stent and 50% distal right coronary narrowing B 30% proximal mid and distal LAD narrowings; there was 50% mid first diagonal narrowing C normal left main and circum[place] [address] CARDIAC CATH REPORT Name: FAY NUNEZ Room: [address] Hammad#: [id number] Admission: 04/29/20 Attend Phys: Devaughn Bills MD, Discharge: Date of : 35 Report #: [id number] 2. Modest systemic systolic hypertension with normal left ventricular end-diastolic pressure at rest Recommendations Cardiac Risk Reduction Program Aggressive Medical Therapy Diagnostic Cath Approved by: Devaughn Bills MD Date/Time: 04/30/2020 09:57:18 <ELECTRONICALLY SIGNED> By: Devaughn Bills MD, [facility] 04/30/20 0957 0957 [id number] Bills MD, FACC /INF
[2020-04-30] MEDS ORDERED: TOPROL XL50 MG (10:49)
[2020-04-30] MEDS ORDERED: NITROSTAT0.4 M1 SUBLING (10:52)
[2020-04-30 11:09] VITALS: BP 172/82
[2020-04-30 11:10] VITALS: BP 172/82
[2020-04-30 11:36] VITALS: BP 172/82
== END 2020-04-30 11:50 | disposition home or self-care (01) ==
LOC: M.CL 14:55 → M.2W 16:47 → M.TBA-ER 16:47 → M.2W 17:42
PROVIDERS: ADMIT Internal Medicine; ATTEND Internal Medicine
DX: Z03.818 Encounter for observation for suspected exposure to other biological agents ruled out (principal); I25.118 Atherosclerotic heart disease of native coronary artery with other forms of angina pectoris; I10 Essential (primary) hypertension; I48.0 Paroxysmal atrial fibrillation; E78.5 Hyperlipidemia, unspecified; R63.5 Abnormal weight gain; Z79.82 Long term (current) use of aspirin; Z79.01 Long term (current) use of anticoagulants; Z79.899 Other long term (current) drug therapy

== ENCOUNTER → 2021-03-24 | Outpatient (CLI) | payer MEDICARE, OTHER ==
[~2021-03-24] MED LIST changes: +NITROSTAT0.4 M1 SUBLING; +TOPROL XL50 MG
--- NOTE | 2021-03-24 16:53 | CARDNUC ---
[place] [address] CARDIAC NUCLEAR IMAGING REPORT Name: FAY NUNEZ [id number] Admission: 03/24/21 Attend Phys: Venkata Reid Discharge: Date of : 35 Date of Service: 03/24/21 1652 Report #: [id number] THIS REPORT FOR: cc: Lucas Echols MD, James A. MD List[place], Michael J. MD [facility] ~ APPROVED REPORT Study performed: 03/24/2021 14:15:50 Exam: Nuclear Stress Test Indication: diaphoresis Patient Location: Out-Patient Stress Tech: Carissa Motley Stress Nurse: Ilda Becerril RN NM Tech:ANNETTE Chi Ht: 5 ft 5 in Wt: 159 lbs BSA: 1.79 m2 BMI: 26.45 Medical History Medical History: Atrial Fibrillation, CAD s/p stent, HTN, Hyperlipidemia Medications: eliquis, flecainide, lisinopril, rosuvastatin. fish oil Allergies: No known drug allergies Cardiac Risk Factors: Age, HTN, Hyperlipidemia Previous Cardiac Procedures: PCI Exercise History: Indeterminate Stress Test Details Stress Test: Pharmacologic stress testing performed using 0.4 mg of regadenoson per 5 mL given IV over 10 seconds. Reason for pharmacologic stress test: physical limitation. HR Resting HR: 107 bpm Max Heart Rate (APMHR): 135 bpm Max HR Achieved: 110 bpm Target HR (85% APMHR): 114 bpm % of APMHR: 81 Recovery HR: 110 bpm BP Resting BP: 110/80 [place] [address] CARDIAC NUCLEAR IMAGING REPORT Name: FAY NUNEZ Room: [facility]#: [id number] Admission: 03/24/21 Attend Phys: Venkata Reid Discharge: Date of : 35 Date of Service: 03/24/21 1652 Report #: [id number] Max BP: 130/78 mmHg ECG Resting ECG: Atrial Flutter Stress ECG: Atrial Flutter ST Change: None Recovery ECG: Atrial Flutter Recovery ST Change: None Clinical Reason for Termination: Completed protocol The patient tolerated Lexiscan infusion without significant cardiac symptoms. Nurse Comments pt has unsteady gait, cannot walk on treadmill Stress ECG Conclusion The baseline EKG appears to exhibit atrial flutter with mild tachycardia. There were no significant obvious ST segment abnormalities. EKGs obtained during and post Lexiscan infusion show persistent atrial flutter. No significant ST segment changes were noted. NM EXAM: Myocardial Perfusion REST/STRESS Imaging Protocol: Rest Tc-99m/Stress Tc-99m 1 day Resting Data Rest SPECT myocardial perfusion imaging was performed in supine position 30 minutes following the intravenous injection of 10.4 mCi of Tc-99m Sestamibi. Time of rest injection: 1300 Date: 03/24/2021 The images were gated to evaluate regional wall motion and calculate left ventricular ejection fraction. Administration Route: IV Pharmacologic Stress Pharmacologic stress test was performed by injecting Regadenoson 0.4 mg IV push followed by the intravenous injection of 33.9 mCi of Tc-99m Sestamibi. Time of stress injection: 1430 Date: 03/24/2021 Administration Route: IV Gated Stress SPECT was performed 40 minutes after stress injection. The images were gated to evaluate regional wall motion and calculate left [place] [address] CARDIAC NUCLEAR IMAGING REPORT Name: FAY NUNEZ Room: [facility] Cueva#: [id number] Admission: 03/24/21 Attend Phys: Venkata Reid Discharge: Date of : 35 Date of Service: 03/24/21 1652 Report #: [id number] Prone imaging was performed. Study Quality Study: Good Artifact: No artifact Study Data At rest, the left ventricular ejection fraction was 68%.. Post stress, the left ventricular ejection was 71%.. TID = 0.96. Perfusion Perfusion images obtained at rest and post Lexiscan stress show uniform uptake of the radioisotope throughout the myocardium. There were no defects to suggest infarct or ischemia. Wall Motion Global LV systolic function is normal. There is a septal wall motion abnormality noted of uncertain significance. Nuclear Conclusion ECG Findings: negative for ischemia Clinical Findings: negative for ischemia Nuclear Findings: negative for ischemia Exercise Capacity: not assessed Left Ventricular Function: Preserved Risk Study: low Perfusion images at rest and post Lexiscan stress show uniform uptake of the radioisotope throughout the myocardium. There were no defects to suggest infarct or ischemia. Left ventricular systolic function is well preserved. This is a low risk study. <Conclusion> The baseline EKG appears to exhibit atrial flutter with mild tachycardia. There were no significant obvious ST segment abnormalities. EKGs obtained during and post Lexiscan infusion show persistent atrial flutter. No significant ST segment changes were noted. <ELECTRONICALLY SIGNED> By: Rafael Monroy MD, FACC 03/24/211651 51 51 Rafael Monroy MD, FACC /INF
== END ==
LOC: M.NUC 03-18 12:18
PROVIDERS: ATTEND Internal Medicine
DX: R00.0 Tachycardia, unspecified (principal); I25.10 Atherosclerotic heart disease of native coronary artery without angina pectoris; Z95.5 Presence of coronary angioplasty implant and graft; R61 Generalized hyperhidrosis